=== PATIENT | male | born 1985 | race American Indian/Alaskan Native ===

== ENCOUNTER 2019-06-25 12:39 | Emergency (ER) | payer OTHER, MEDICAID ==
[2019-06-25] MEDS ORDERED: IBUPROFEN PO ONE (14:26)
[2019-06-25] MEDS ORDERED: DELTASONE PO ONE (14:26)
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
[2019-06-25 17:03] VITALS: BP 126/69
--- NOTE | 2019-06-25 17:45 | XRay Report ---
LUMBAR SPINE 3 VIEWS. INDICATION / CLINICAL INFORMATION: Back pain. COMPARISON: None available. FINDINGS: BONES / JOINT(S): No acute fracture or subluxation. No significant arthritis. SOFT TISSUES: No significant abnormality. ADDITIONAL FINDINGS: None. Signer Name: Filippo Osuna MD Signed: 06/25/2019 5:41 PM Workstation Name: [id number]
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
== END 2019-06-25 17:03 | disposition home or self-care (01) ==
LOC: ED 12:39
DX: M54.5 Low back pain (principal); M79.10 Myalgia, unspecified site; V89.2XXA Person injured in unspecified motor-vehicle accident, traffic, initial encounter; Y93.89 Activity, other specified; Y92.410 Unspecified street and highway as the place of occurrence of the external cause; Y99.8 Other external cause status
CPT/HCPCS: 72040; 72100; 99283; J7512

== ENCOUNTER 2021-02-13 23:13 | Emergency (ER) | payer SELFPAY ==
[2021-02-13 23:51] VITALS: BP 124/70
--- NOTE | 2021-02-14 03:04 | Emergency Department Report ---
ED Eye Problem HPI - General Chief complaint: Eye Problems Stated complaint: EYE IRRITATION Source: patient Mode of arrival: Ambulatory Limitations: No Limitations - History of Present Illness Initial comments: Patient is a 35-year-old -[place] male with no past medical history presents to the ED with complaint of acute onset persistent left eye pain with swollen left upper eyelid with thick purulent discharge for the last 3 days. Patient states that the pain has been persistent and worse especially in the last 12 hours. Patient states that he has been using [id number] eyedrops with no relief. Patient denies fever, chills, cough, nasal and sinus congestion, traumatic injury, dizziness, syncope, change in vision, neck pain, headache, sore throat, nasal and sinus congestion. MD chief complaint: eye pain (left eye), eye redness (left eye), other (left upper eyelid) -: Sudden, days(s) (3) Onset Description: sudden Location: left eye Place: home If Injury: none Eye Symptoms: burning, redness, pain, itching, discharge Severity: severe Severity scale (0 -10): 7 If Pain, Quality: sharp, burning, aching Consistency: constant Associated Symptoms: none. denies: headache, neck pain, nausea/vomiting, cough, rhinorrhea, fever, shortness of breath Treatments Prior to Arrival: OTC eye drops - Related Data Patient Tetanus UTD: No Previous Rx's Medication Instructions Recorded Last Taken Type Cyclobenzaprine [Flexeril] 10 mg PO TID PRN #10 tablet 06/25/19 Unknown Rx predniSONE [Deltasone] 20 mg PO DAILY #5 tablet 06/25/19 Unknown Rx Gentamicin 0.3% Ophth Soln 1 - 2 drops OP Q4H #5 ml 02/14/21 Unknown Rx Ibuprofen [Motrin 800 MG tab] 800 mg PO Q8HR PRN #30 tablet 02/14/21 Unknown Rx Sulfamethoxazole/Trimethoprim 1 each PO Q12H #20 tablet 02/14/21 Unknown Rx [Bactrim DS TAB] Allergies Allergy/AdvReac Type Severity Reaction Status Date / Time No Known Allergies Allergy Unverified 02/13/21 23:44 ED Review of Systems ROS: Stated complaint: EYE IRRITATION Other details as noted in HPI Constitutional: denies: chills, fever Eyes: eye pain (left eye pain and swollen painful left upper eyelid), eye discharge (left eye pain, swollen left eyelid), other (left eye matting and purulent). denies: vision change ENT: denies: ear pain, throat pain Respiratory: denies: cough, shortness of breath, wheezing Cardiovascular: denies: chest pain, palpitations Endocrine: no symptoms reported Gastrointestinal: denies: abdominal pain, nausea, diarrhea Genitourinary: denies: urgency, dysuria Musculoskeletal: denies: back pain, joint swelling, arthralgia Skin: denies: rash, lesions Neurological: denies: headache, weakness, paresthesias Psychiatric: denies: anxiety, depression Hematological/Lymphatic: denies: easy bleeding, easy bruising ED Past Medical Hx - Social History Smoking Status: Never Smoker Substance Use Type: None - Medications Home Medications: Home Medications Medication Instructions Recorded Confirmed Last Taken Type Cyclobenzaprine [Flexeril] 10 mg PO TID PRN #10 tablet 06/25/19 Unknown Rx predniSONE [Deltasone] 20 mg PO DAILY #5 tablet 06/25/19 Unknown Rx Gentamicin 0.3% Ophth Soln 1 - 2 drops OP Q4H #5 ml 02/14/21 Unknown Rx Ibuprofen [Motrin 800 MG tab] 800 mg PO Q8HR PRN #30 tablet 02/14/21 Unknown Rx Sulfamethoxazole/Trimethoprim 1 each PO Q12H #20 tablet 02/14/21 Unknown Rx [Bactrim DS TAB] ED Physical Exam - General Limitations: No Limitations General appearance: alert, in no apparent distress - Head Head exam: Present: atraumatic, normocephalic, normal inspection - Eye Eye exam: Present: normal appearance, PERRL, EOMI, other (left eye tenderness, swollen left upper eyelid with purulent discharge) Pupils: Present: normal accommodation - ENT ENT exam: Present: normal exam, normal orophraynx, mucous membranes moist, TM's normal bilaterally, normal external ear exam - Neck Neck exam: Present: normal inspection, full ROM - Respiratory Respiratory exam: Present: normal lung sounds bilaterally. Absent: respiratory distress, wheezes, rales, rhonchi, chest wall tenderness, accessory muscle use, decreased breath sounds, prolonged expiratory - Cardiovascular Cardiovascular Exam: Present: regular rate, normal rhythm, normal heart sounds. Absent: systolic murmur, diastolic murmur, rubs, gallop - GI/Abdominal GI/Abdominal exam: Present: soft, normal bowel sounds. Absent: tenderness, guarding, rebound, hyperactive bowel sounds, hypoactive bowel sounds, organomegaly - Extremities Exam Extremities exam: Present: normal inspection, full ROM, normal capillary refill - Back Exam Back exam: Present: normal inspection, full ROM. Absent: tenderness, CVA tenderness (R), CVA tenderness (L), muscle spasm, paraspinal tenderness, vertebral tenderness - Neurological Exam Neurological exam: Present: alert, oriented X3, CN II-XII intact, normal gait, reflexes normal - Psychiatric Psychiatric exam: Present: normal affect, normal mood - Skin Skin exam: Present: warm, dry, intact, normal color. Absent: rash ED Course Vital Signs 02/13/21 23:48 Temperature 98.3 F Pulse Rate 62 Respiratory 16 Rate Blood Pressure 124/70 O2 Sat by Pulse 97 Oximetry ED Medical Decision Making - Medical Decision Making This is a 35-year-old -[place] male with no past medical history presents to the ED with complaint of acute onset persistent left eye pain with swollen left upper eyelid with thick purulent discharge for the last 3 days. Patient states that the pain has been persistent and worse especially in the last 12 hours. Patient states that he has been using [id number] eyedrops with no relief. In the ED, patient is alert and oriented x3 and is not in any distress. Based on the history and physical exam findings, the patient was discharged home on antibiotic eyedrops as well as antibiotic oral tablets for suspected acute blepharitis. Patient was also discharged home on pain medications and was advised to follow-up with his primary care physician in 7 to 10 days for reevaluation or return to the ED immediately if symptoms get worse. - Differential Diagnosis blepharitis; bacterial conjunctivitis; stye Critical care attestation.: If time is entered above; I have spent that time in minutes in the direct care of this critically ill patient, excluding procedure time. ED Disposition Clinical Impression: Acute bacterial conjunctivitis of left eye Blepharitis of left upper eyelid Qualifiers: Blepharitis type: unspecified type Qualified Code(s): H01.004 - Unspecified blepharitis left upper eyelid Disposition: - TO HOME OR SELFCARE Is pt being admited?: No Does the pt Need Aspirin: No Condition: Stable Instructions: Bacterial Conjunctivitis, Adult, Dkvo-[id number], Blepharitis, [id number] Additional Instructions: Take medication with food, drink plenty of fluids, drink plenty of fluids and follow-up with your primary care physician in 7 to 10 days for reevaluation. Return to the ED immediately if symptoms get worse. Prescriptions: Sulfamethoxazole/Trimethoprim [Bactrim DS TAB] 1 each PO Q12H #20 tablet Gentamicin 0.3% Ophth Soln 1 - 2 drops OP Q4H #5 ml Ibuprofen [Motrin 800 MG tab] 800 mg PO Q8HR PRN #30 tablet PRN Reason: Pain, Mild (1-3) Referrals: [facility] [Provider Group] - 7-10 days Time of Disposition: 03:06 Print Language: SPANISH
== END 2021-02-14 03:35 | disposition home or self-care (01) ==
LOC: ED 23:13
DX: H01.004 Unspecified blepharitis left upper eyelid (principal); H10.32 Unspecified acute conjunctivitis, left eye; Z79.899 Other long term (current) drug therapy
CPT/HCPCS: 99282